=== PATIENT | female | born 1995 | race Caucasian/White ===

== ENCOUNTER 2023-01-11 15:19 | Emergency (ER) | payer OTHER ==
[~2023-01-11] VITALS: Ht 165.1 cm; Wt 58.1 kg
[2023-01-11] MEDS ORDERED: ALLEGRA ALLERG180 MG PO (16:57)
== END 2023-01-11 17:04 | disposition home or self-care (01) ==
LOC: ER 15:19
DX: L50.0 Allergic urticaria (principal)